=== PATIENT | female | born 1985 | race Asian ===

== ENCOUNTER 2024-11-06 17:26 | Emergency (ER) | payer OTHER ==
[~2024-11-06] VITALS: Ht 154.9 cm; Wt 48.1 kg
[2024-11-06 17:41] VITALS: TEMP 36.8; O2SAT 99
[2024-11-06] MEDS ORDERED: IBUP-2029 MT (20:27)
[2024-11-06 20:42] VITALS: BP 113/69; PULSE 71; RESP 16; O2SAT 98
== END 2024-11-06 20:48 | disposition home or self-care (01) ==
LOC: ER 18:21
DX: S92.511A Displaced fracture of proximal phalanx of right lesser toe(s), initial encounter for closed fracture (principal); Z79.899 Other long term (current) drug therapy; Z98.890 Other specified postprocedural states; W19.XXXA Unspecified fall, initial encounter; Y93.89 Activity, other specified; Y92.89 Other specified places as the place of occurrence of the external cause; Y99.8 Other external cause status
CPT/HCPCS: 73630; 99283